=== PATIENT | male | born 1950 | race Caucasian/White ===

== ENCOUNTER 2022-04-29 08:46 | Emergency (ER) | payer MEDICARE, BC ==
[2022-04-29 09:12] LABS: BASOPHILS % (AUTO) 0.4 %; EOSINOPHILS # (AUTO) 0.2 10^3/uL (0.0-0.7); HGB - HEMOGLOBIN 15.6 g/dL (14.0-18.0); LYMPHOCYTES # (AUTO) 0.9 10^3/uL (1.5-3.5); LYMPHOCYTES % (AUTO) 12.4 %; MEAN CORPUSCULAR HEMOGLOBIN 29.8 pg (27.0-31.0); MEAN CORPUSCULAR HGB CONC 32.5 g/dL (32.0-36.0); MEAN CORPUSCULAR VOLUME 91.8 fL (80.0-94.0); MEAN PLATELET VOLUME 10.8 fL (7.4-11.4); MONOCYTES # (AUTO) 0.6 10^3/uL (0.0-1.0); MONOCYTES % (AUTO) 7.6 %; NEUTROPHILS # (AUTO) 5.7 10^3/uL (1.5-6.6); NEUTROPHILS % (AUTO) 77.2 %; PLT - PLATELET COUNT 207 10^3/uL (130-450); RED BLOOD COUNT 5.23 10^6/uL (4.70-6.10); RED CELL DISTRIBUTION WIDTH 13.3 % (12.0-15.0); WHITE BLOOD COUNT 7.3 x10^3/uL (4.8-10.8)
[2022-04-29] MEDS ORDERED: iohexoL-300 100 ML VIAL ONE (09:23)
[2022-04-29 09:25] LABS: ALBUMIN 3.9 g/dL (3.2-5.5); ALBUMIN/GLOBULIN RATIO 1.3 (1.0-2.2); CALCIUM 9.1 mg/dL (8.5-10.3); POTASSIUM 3.8 mmol/L (3.5-5.0); TOTAL PROTEIN 6.9 g/dL (6.7-8.2)
--- NOTE | 2022-04-29 10:14 | CT Report ---
PROCEDURE: ANGIO HEAD W/WO INDICATIONS: L sided facial droop CONTRAST: 100ml Omnipaque 300 TECHNIQUE: Precontrast 4.5 mm thick angled axial sections acquired from the foramen magnum to the vertex. Afte r the administration of intravenous contrast, 1 mm thick sections acquired through the [place] of [place] is. Postcontrast 4.5 mm thick sections then re-acquired from the foramen magnum to the vertex. 3-di mensional yqkwwfe-wdpthianw-jsfxcaxekz (MIP) and/or volume rendering reformats were acquired of the c entral intracranial vasculature. For radiation dose reduction, the following was used: automated ex posure control, adjustment of mA and/or kV according to patient size. COMPARISON: 08/26/2019 MRI brain and CTA of the head and neck. FINDINGS: Image quality: Excellent. Anterior circulation: Mild atherosclerotic narrowing of the right greater than left carotid siphons a nd carotid termini. Mild intracranial atherosclerotic narrowing of the M1 and A1 segments, right grea ter than left. Posterior circulation: Widely patent bilateral V4 segments and basilar artery. Posterior cerebral art eries normal. CSF spaces: Ventricles are normal in size and shape. Basal cisterns are patent. No extra-axial flu id collections. Brain: No midline shift. No intracranial bleeds or masses. Fuentes-white matter interface appears int act. Skull and face: Calvarium and facial bones appear intact, without suspicious lesions. Sinuses: Visualized sinuses and mastoids are clear. IMPRESSION: No acute intracranial finding. No occlusion or hemodynamically significant stenosis of the major intracranial arterial circulation. Mild atherosclerotic narrowing of the carotid siphons and carotid termini, along with mild atheroscle rotic narrowing of the the right greater than left M1/A1 segments. Reviewed by: Paresh Fortune MD on 04/29/2022 10:13 AM [facility] Approved by: Paresh Fortune MD on 04/29/2022 10:13 AM PST Station ID: [id number]
--- NOTE | 2022-04-29 10:17 | CT Report ---
PROCEDURE: ANGIO NECK W INDICATIONS: L sided facial droop, L neck pain CONTRAST: 100ml Omnipaque 300 TECHNIQUE: After the administration of intravenous contrast, 1.5 mm axial sections acquired from the aortic arch to the [place] of [place]. Coronal 3-D maximum intensity projection (MIP) and/or volume rendering ref ormats were then performed. For radiation dose reduction, the following was used: automated exposur e control, adjustment of mA and/or kV according to patient size. COMPARISON: None. FINDINGS: Image quality: Excellent. Carotid system: The great vessels demonstrate a conventional anatomy as they arise from the aortic a rch. The origins of the common carotid arteries appear patent. The common carotid arteries demonstr ate normal calibers and courses. The bifurcation regions appear normal bilaterally. The internal ca rotid arteries demonstrate normal caliber and course. Posterior circulation: The origins of the vertebral arteries appear patent. The more superior porti ons of the vertebral arteries demonstrate normal course and caliber. They join to form a normal appe aring basilar artery. Soft tissues: Visualized neck soft tissues demonstrate no suspicious abnormalities. The thyroid is normal in size and there are no incidental findings. Bones: No suspicious bony lesions. Visualized cervical spine appears normally aligned. IMPRESSION: No cervical arterial occlusion or hemodynamically significant narrowing. Reviewed by: Paresh Fortune MD on 04/29/2022 10:15 AM [facility] Approved by: Paresh Fortune MD on 04/29/2022 10:15 AM PST Station ID: [id number]
--- NOTE | 2022-04-29 12:24 | ED Physician Documentation ---
History of Present Illness - Stated complaint Stated Complaint: STROKE SYMP/SPEECH TROUBLE - Chief complaint Chief Complaint: Neuro - History obtained from History obtained from: Patient, Family - Additonal information Additional information: The patient comes to the emergency department chief complaint of an episode of slurred and slightly slowed speech this morning upon awakening. He states that his states that she also noticed some left facial droop. Patient has a history of similar symptoms before, except at that time, he had visual changes. The patient states that he feels as though his symptoms have improved quite a bit since he first noticed them upon awakening. The patient states he was last known well last night. Review of Systems Ten Systems: 10 systems reviewed and negative Constitutional: reports: Reviewed and negative Eyes: reports: Reviewed and negative Ears: reports: Reviewed and negative Nose: reports: Reviewed and negative Throat: reports: Reviewed and negative Cardiac: reports: Reviewed and negative Respiratory: reports: Reviewed and negative GI: reports: Reviewed and negative : reports: Reviewed and negative Skin: reports: Reviewed and negative Musculoskeletal: reports: Reviewed and negative Neurologic: reports: Focal weakness, Difficulty speaking Psychiatric: reports: Reviewed and negative Endocrine: reports: Reviewed and negative Immunocompromised: reports: Reviewed and negative PD PAST MEDICAL HISTORY - Past Medical History Past Medical History: Yes Cardiovascular: Atrial fibrillation Neuro: CVA - Allergies Allergies/Adverse Reactions: Allergies Allergy/AdvReac Type Severity Reaction Status Date / Time Penicillins Allergy Unknown Verified 04/29/22 08:57 - Social History Does the pt smoke?: No Smoking Status: Never smoker PD ED PE NORMAL - Vitals Vital signs reviewed: Yes - General General: Alert and oriented X 3, No acute distress, Well developed/nourished - HEENT HEENT: Atraumatic, PERRL, EOMI, Moist mucous membranes - Neck Neck: Supple, no meningeal sign - Cardiac Cardiac: RRR, No murmur, Strong equal pulses - Respiratory Respiratory: No respiratory distress, Clear bilaterally - Abdomen Abdomen: Soft, Non tender, Non distended - Derm Derm: Normal color, Warm and dry, No rash - Extremities Extremities: No deformity, No edema - Neuro Neuro: Alert and oriented X 3, No motor deficit, No sensory deficit, Normal speech, Other (The pt has a very slight droop of his L mouth, but no discernible speech difficulties. Remainder of neuro exam intact.) - Psych Psych: Normal mood, Normal affect Results - Vitals Vitals: Oxygen O2 Source Room air - Labs Labs: Laboratory Tests 04/29/22 04/29/22 04/29/22 09:08 09:08 09:08 WBC 7.3 RBC 5.23 Hgb 15.6 Hct 48.0 MCV 91.8 MCH 29.8 MCHC 32.5 RDW 13.3 Plt Count 207 MPV 10.8 Neut # (Auto) 5.7 Lymph # (Auto) 0.9 L Hendricks # (Auto) 0.6 Eos # (Auto) 0.2 Baso # (Auto) 0.0 Absolute Nucleated RBC 0.00 Nucleated RBC % 0.0 Sodium 136 Potassium 3.8 Chloride 100 L Carbon Dioxide 28 Anion Gap 8.0 BUN 22 H Creatinine 1.0 Estimated GFR (MDRD) 73 L Glucose 117 H Calcium 9.1 Total Bilirubin 1.0 AST 25 ALT 24 Alkaline Phosphatase 79 Troponin I High Sens 22.0 H* Total Protein 6.9 Albumin 3.9 Globulin 3.0 Albumin/Globulin Ratio 1.3 Lipase 29 - Rads (name of study) CT head Radiology: Final report received, See rad report (NAD) CTA head/neck Radiology: Final report received, See rad report (NAD) MR Brain Radiology: Final report received, See rad report (NAD) PD Medical Decision Making - ED course Complexity details: reviewed results, re-evaluated patient, considered differential, d/w patient, d/w family ED course: The pt's sx were concerning for TIA, and given that this had happened to him before, I did work him up extensively with this in mind. He did have sparing of the forehead, which was more consistent with a central source than a Tracey's Palsy. Labs were unremarkable. CT/CTAs were also unremarkable. I sent the pt for an MRI of the brain, which showed no acute findings. The pt and were advised of the results. Pt is already anticoagulated, and there is no indication for change of management at this time. We have discussed the usual indications for follow-up and return. Departure - Departure Disposition: 01 Home, Self Care Clinical Impression: TIA (transient ischemic attack) Condition: Stable Instructions: ED Transient Ischemic Attack, ED Weakness [facility] Comments: Your CT scans and MRI look great. You most likely had a brief decrease in blood flow through one of your tiny arteries in your brain. However, this has completely been restored and there is no persistent lapse in flow to any part of your brain at this time. Please continue your Eliquis and other medications as directed and follow-up with your primary doctor. Discharge Date/Time: 04/29/22 16:56
[2022-04-29] MEDS: iohexoL-300 100 ML VIAL IVP ONE (15:40)
--- NOTE | 2022-04-29 15:47 | MRI Report ---
PROCEDURE: BRAIN WO INDICATIONS: Left facial droop/slurred speech TECHNIQUE: Noncontrast axial T1 spin echo, axial T2 fast spin echo, sagittal and axial FLAIR, coronal T2 fast sp in echo, axial gradient echo, axial diffusion and ADC through the brain. COMPARISON: CT angiogram and abdomen neck 04/29/2022 FINDINGS: Image quality: Excellent. CSF Spaces: Basal cisterns are patent. No extra-axial fluid collections. Ventricles are normal in size and shape. Brain: Mild cerebral volume loss and chronic vascular ischemic changes. No intracranial masses or he morrhage. Fuentes/white matter interface is normal. Brainstem appears normal. Diffusion-weighted imag es demonstrate no acute ischemic insult. No chronic ischemic insults. Normal intravascular flow voi ds are present. Skull and face: Calvarium has normal marrow signal. Orbits appear normal. Sinuses: Sinuses and mastoids are clear. IMPRESSION: No acute finding. Reviewed by: Paresh Fortune MD on 04/29/2022 3:46 PM PST Approved by: Paresh Fortune MD on 04/29/2022 3:46 PM PST Station ID: [id number]
[2022-04-29 16:22] VITALS: BP 146/112
== END 2022-04-29 16:56 | disposition home or self-care (01) ==
LOC: ED 08:46
DX: G45.9 Transient cerebral ischemic attack, unspecified (principal)
CPT/HCPCS: 36415; 70496; 70498; 70551; 80053; 83690; 84484; 85025; 93005; 99282; 99284; Q9967